=== PATIENT | female | born 1965 | race Caucasian/White ===

== ENCOUNTER → 2018-02-24 00:52 | Outpatient (CLI) | payer OTHER, SELFPAY ==
--- NOTE | 2018-02-24 08:30 | DI.RPTCT_ITS ---
SYMPTOM/DIAGNOSIS: RECENT RECURRENT EPISODES OF COLIC RENAL COLIC CT: The study was carried out according to the usual protocol. The right kidney is unremarkable. Moderate left hydronephrosis is demonstrated. There are numerous nonobstructing small renal calculi. A ureterectasis is demonstrated down to the level of the distal ureter where there is a 4 to 4.5 mm calculus. The bladder is suboptimally distended. SUMMARY: Left nephrolithiasis, moderate left hydronephrosis and hydroureter. There is a 4 to 4.5 mm calculus in the distal left ureter as noted above.
== END ==
PROVIDERS: PCP Family Medicine; Visit Provider Family Medicine
DX: N20.0 Calculus of kidney (principal); N13.2 Hydronephrosis with renal and ureteral calculous obstruction; N23 Unspecified renal colic
CPT/HCPCS: 74176

== ENCOUNTER 2018-04-29 00:34 | Outpatient (CLI) | payer OTHER, SELFPAY ==
--- NOTE | 2018-04-29 13:00 | DI.US_ITS ---
SYMPTOMS/DIAGNOSIS: LEFT URETERAL STONE, N20.1, S/P URETEROSCOPY, ? HYDRONEPHROSIS RENAL ULTRASOUND: Comparison is made with a CT dated February,. The right kidney measures 10.7 cm in length. No right hydronephrosis or renal calculi are seen. The left kidney measures 11.3 cm in length. The tiny calculi seen on the previous CT in the left kidney are not visible on ultrasound. No perinephric collections are seen. There is a question of mild left hydronephrosis versus anatomically prominent renal pelvis. The prevoid bladder volume measured 143 cc. There is a postvoid residual of 20 cc. Both ureteral jets were visualized. IMPRESSION: Question of mild left hydronephrosis versus anatomically prominent renal pelvis.
== END 2018-04-29 00:54 ==
PROVIDERS: PCP Family Medicine; Visit Provider Urology
DX: N20.1 Calculus of ureter (principal); N13.30 Unspecified hydronephrosis
CPT/HCPCS: 76770

== ENCOUNTER 2018-05-02 10:41 | Outpatient (REF) | payer OTHER, SELFPAY ==
[2018-05-02 14:05] LABS: Sodium, Urine 35 mmol/L
[2018-05-02 14:06] LABS: CLEAVED CELLS 91 mmol/24h (40-220); Creatinine,Urine 49.95 mg/dL; Total Volume 2600 ml
[2018-05-02 14:14] LABS: Total Volume 2600 ml
[2018-05-03 09:03] LABS: Calcium Urine 10.1 mg/dl; Calcium Urine 24 hr 263 mg/24hr (100-300); Magnesium 24hr Urine 93.6 mg/24h (73.0-122.0); Magnesium Random Urine 3.6 mg/dl; Phosphorus Urine 32.3 mg/dl; Phosphorus Urine 24hr 0.8 g/24h (0.4-1.3); Uric Acid Urine 23.1 mg/dl; Uric Acid Urine 24hr 601 mg/24h (250-750)
[2018-05-03 16:59] LABS: Citrate Excretion, 24hr, U 325 mg/24 h (392 - 1191); Urine Volume 2600 mL
[2018-05-03 18:48] LABS: Oxalate Concentration 8.8 mg/L; Oxalate, U 0.26 mmol/24 h; Oxalate, U 22.9 mg/24 h (9.7 - 40.5); Urine Volume 2600 mL
== END 2018-05-02 11:01 ==
LOC: LBN 10:41
PROVIDERS: PCP Family Medicine; Visit Provider Urology
DX: N20.1 Calculus of ureter (principal)
CPT/HCPCS: 82507; 83735; 81050; 82340; 82570; 83945; 84105; 84300; 84560

== ENCOUNTER 2018-08-02 03:04 | Outpatient (CLI) | payer OTHER, SELFPAY ==
[2018-08-02 10:52] LABS: Cholesterol 239 mg/dL (50-200); Glucose 109 mg/dL (70-100); HDL Cholesterol 55 mg/dL (40-60); LDL CHOLESTEROL 154 mg/dL (<100); Triglyceride 144 mg/dL (30-150)
== END 2018-08-02 03:24 ==
PROVIDERS: PCP Internal Medicine; Visit Provider Internal Medicine
DX: R23.4 Changes in skin texture (principal); Z00.00 Encounter for general adult medical examination without abnormal findings
CPT/HCPCS: 36415; 80061; 82947; 83721; 84443

== ENCOUNTER 2018-12-29 14:26 | Outpatient (CLI) | payer OTHER, SELFPAY ==
--- NOTE | 2018-12-29 14:00 | DI.RAD_ITS ---
SYMPTOMS/DIAGNOSIS: RIGHT-SIDED CHEST PAIN, R07.9 PA AND LATERAL CHEST: The heart is normal in size. The lungs are clear. The mediastinal structures and pleura appear intact. SUMMARY: Normal chest.
[2018-12-29 14:58] LABS: HCT 42.8 % (36.0-46.0); HGB 14.8 g/dL (12.0-15.5); Mean Corp. HGB Concentration 34.6 g/dL (32.0-36.0); Mean Corpuscular Hemoglobin 32.3 pg (27.0-33.0); Mean Corpuscular Volume 93.4 fL (80-95); Mean Platelet Volume 11.3 fL (8.0-11.0); Platelet Count 243 x1000/uL (130-400); RBC 4.58 m/cumm (4.00-5.20); RBC Distribution Width 12.4 % (11.7-14.6); White Blood Cell Count 7.94 k/cumm (4.4-10.8)
[2018-12-29 16:22] LABS: ALT 82 U/L (12-78); AST 35 U/L (15-37); Albumin 4.2 g/dL (3.4-5.0); Alkaline Phosphatase 101 U/L (46-116); Anion Gap 10.8 mmol/L (3-11); BUN 14 mg/dL (7-18); Bilirubin, Total 0.2 mg/dL (0.2-1.0); CO2 26.2 mmol/L (21.0-32.0); CREATININE 1.07 mg/dL (0.55-1.02); Calcium 9.4 mg/dL (8.5-10.1); Chloride 103 mmol/L (98-107); Estimated GFR 53.44 (mL/min/1.73m2); Glucose 129 mg/dL (70-100); Potassium 3.9 mmol/L (3.5-5.1); Sodium 140 mmol/L (136-145); Total Protein 7.2 g/dL (6.4-8.2)
== END 2018-12-29 14:46 ==
PROVIDERS: PCP Internal Medicine; Visit Provider Internal Medicine
DX: R07.9 Chest pain, unspecified (principal); R53.83 Other fatigue
CPT/HCPCS: 36415; 80053; 85027; 71046; 84443

== ENCOUNTER 2019-01-27 02:17 | Outpatient (CLI) | payer OTHER, SELFPAY ==
[2019-01-27 14:25] LABS: Hemoglobin A1C 6.2 % (4.5-6.2)
== END 2019-01-27 02:37 ==
PROVIDERS: PCP Internal Medicine; Visit Provider Internal Medicine
DX: R53.83 Other fatigue (principal)
CPT/HCPCS: 36415; 83036

== ENCOUNTER 2020-07-18 03:30 | Outpatient (CLI) | payer OTHER, SELFPAY ==
[2020-07-18 10:49] LABS: Abs Immature Grans 0.02 10^3/uL (0.0-0.06); Absolute Basophil Count 0.03 10^3/uL (0.0-0.2); Absolute Eosinophil Count 0.11 10^3/uL (0.0-0.7); Absolute Lymphocyte Count 2.18 10^3/uL (1.2-3.4); Absolute Monocyte Count 0.44 10^3/uL (0.1-0.8); Absolute Neutrophil Count 3.45 10^3/uL (1.2-6.7); Basophils % 0.5; Eosinophils % 1.8; HCT 44.6 % (36.0-46.0); HGB 15.1 g/dL (11.2-15.7); Immature Grans % 0.3; MCH 32.3 pg (27.0-33.0); MCHC 33.9 % (32.0-36.0); MCV 95.5 fL (80-95); MPV 10.4 fL (8.0-11.0); Monocytes % 7.1; Neutrophils % 55.3; Nucleated RBC 0 %; Platelet Count 238 10^3/uL (130-400); RBC 4.67 10^6/uL (3.93-5.22); RDW 12.2 % (11.7-14.6); RDW-SD 42.5 fL; WBC 6.23 10^3/uL (4.4-10.8)
[2020-07-18 11:00] LABS: Hemoglobin A1C 5.8 % (<5.7)
[2020-07-18 11:34] LABS: ALT 54 U/L (14-59); AST 23 U/L (15-37); Albumin 4.4 g/dL (3.4-5.0); Alkaline Phosphatase 79 U/L (46-116); Anion Gap 7.5 mmol/L (3-11); BUN 15 mg/dL (7-18); Bilirubin, Total 0.4 mg/dL (0.2-1.0); CO2 29.5 mmol/L (21.0-32.0); CREATININE 0.91 mg/dL (0.55-1.02); Calcium 9.5 mg/dL (8.5-10.1); Calculated LDL 167 mg/dL (<100); Chloride 103 mmol/L (98-107); Cholesterol 257 mg/dL (<200); Glucose 101 mg/dL (74-106); HDL Cholesterol 61 mg/dL (40-60); Potassium 4.2 mmol/L (3.5-5.1); Sodium 140 mmol/L (136-145); Total Protein 7.3 g/dL (6.4-8.2); Triglyceride 145 mg/dL (<150)
== END 2020-07-18 03:50 ==
PROVIDERS: PCP Internal Medicine; Visit Provider Internal Medicine
DX: Z00.00 Encounter for general adult medical examination without abnormal findings (principal); R73.9 Hyperglycemia, unspecified; Z13.220 Encounter for screening for lipoid disorders
CPT/HCPCS: 36415; 80053; 80061; 83036; 85025

== ENCOUNTER 2020-07-18 11:21 | Outpatient (CLI) | payer OTHER, SELFPAY ==
--- NOTE | 2020-07-18 11:15 | DI.RAD_ITS ---
EXAM: XR HIP PELVIS ADULT BL CLINICAL HISTORY: F/U L SHARIFA. TECHNIQUE: 2D digital imaging was performed. FINDINGS: No evidence of pelvic or hip fractures. Left hip prosthesis is again noted. Right hip appears intac t and without significant narrowing and no osteophytes. Components of the left hip prosthesis are sa tisfactory with no loosening no radiographic evidence of osteomyelitis. IMPRESSION: DATA REPOSITORY: RADIATION DOSE DELIVERED:
== END 2020-07-18 11:41 ==
PROVIDERS: PCP Internal Medicine; Referring Provider Internal Medicine; Visit Provider Student in an Organized Health Care Education/Training Program
DX: Z96.642 Presence of left artificial hip joint (principal)
CPT/HCPCS: 73521

== ENCOUNTER 2024-03-23 15:52 | Outpatient (CLI) | payer OTHER, SELFPAY ==
--- NOTE | 2024-03-23 14:36 | DI.RAD_ITS ---
Exam(s) XR HIP RT COMPLETE AP PELVIS EXAM: XR HIP RT COMPLETE AP PELVIS CLINICAL HISTORY: RIGHT HIP PAIN. TECHNIQUE: 2D digital imaging was performed. COMPARISON: CR XR HIP PELVIS ADULT BL from 07/18/2020 FINDINGS: Two views: Appearance of the left hip prosthesis is stable. Right hip remains unremarkable in appearance with no fracture nor dislocation nor joint space narrowi ng. No osteophytes. No soft tissue calcifications. Pubic rami and visualized sacroiliac joints appear unremarkable. IMPRESSION: No significant radiographic findings in the right hip. Stable appearing left hip prosthesis DATA REPOSITORY: RADIATION DOSE DELIVERED:
== END 2024-03-23 15:53 | disposition home or self-care (01) ==
LOC: DIORS 15:52
PROVIDERS: PCP Internal Medicine; Visit Provider Physician Assistant
DX: M16.11 Unilateral primary osteoarthritis, right hip
CPT/HCPCS: 73502

== ENCOUNTER 2024-05-08 02:27 | Outpatient (CLI) | payer OTHER, SELFPAY ==
[2024-05-08 14:01] LABS: HCT 41.3 % (36.0-46.0); HGB 14.5 g/dL (11.2-15.7); MCH 32.9 pg (27.0-33.0); MCHC 35.1 % (32.0-36.0); MCV 94 fL (80-95); MPV 10.9 fL (8.0-11.0); Platelet Count 242 10^3/uL (130-400); RBC 4.41 10^6/uL (3.93-5.22); RDW 12.1 % (11.7-14.6); RDW-SD 41.7 fL
[2024-05-08 15:03] LABS: Anion Gap 6.2 mmol/L (3-11); BUN 14 mg/dL (7-18); CO2 31.8 mmol/L (21.0-32.0); CREATININE 0.9 mg/dL (0.55-1.02); Calcium 9.6 mg/dL (8.5-10.1); Chloride 104 mmol/L (98-107); Estimated GFR 73.19 (mL/min/1.73m2); Glucose 99 mg/dL (74-106); Potassium 3.8 mmol/L (3.5-5.1); Sodium 142 mmol/L (136-145)
== END 2024-05-08 02:28 | disposition home or self-care (01) ==
LOC: LBO 02:28
PROVIDERS: PCP Internal Medicine; Visit Provider Student in an Organized Health Care Education/Training Program
DX: M16.11 Unilateral primary osteoarthritis, right hip (principal); Z01.818 Encounter for other preprocedural examination
CPT/HCPCS: 36415; 80048; 85027